=== PATIENT | male | born 1990 | race Caucasian/White ===

== ENCOUNTER 2016-11-03 05:51 | Day surgery (SDC) | payer OTHER ==
[2016-11-03] MEDS ORDERED: PREGABALIN 75 MG CAP PO ONE (06:00)
[2016-11-03] MEDS ORDERED: ACETAMINOPHEN 500 MG TAB PO ONE (06:00)
[2016-11-03] MEDS ORDERED: ceFAZolin 2 GM/DEXTROSE 100 ML IV ONE (06:00)
[2016-11-03] MEDS ORDERED: LIDOCAINE 1% 5 ML SDV ONE (06:44)
[2016-11-03] MEDS ORDERED: SCOPOLAMINE HYDROBROMIDE 1.5 MG PATCH TD ONE ×2 (07:26→07:30)
[2016-11-03] MEDS ORDERED: BUPIVACAINE/EPI 0.25% 30 ML SDV ONE (07:47)
[2016-11-03] MEDS ORDERED: EPINEPHrine 30 MG/30 ML MDV ONE (07:48)
[2016-11-03] MEDS ORDERED: PROPOFOL 200 MG/20 ML VIAL ONE (08:25)
[2016-11-03] MEDS ORDERED: fentaNYL 250 MCG/5 ML INJ ONE (08:25)
[2016-11-03] MEDS ORDERED: METOCLOPRAMIDE 10 MG/2 ML VIAL ONE (08:26)
[2016-11-03] MEDS ORDERED: ONDANSETRON 4 MG/2 ML VIAL ONE (08:26)
[2016-11-03] MEDS ORDERED: LIDOCAINE 2% JELLY 5 ML TUBE ONE (08:26)
[2016-11-03] MEDS ORDERED: MIDAZOLAM 2 MG/2 ML VIAL ONE (09:14)
[2016-11-03] MEDS ORDERED: KETOROLAC 30 MG/1 ML SDV ONE (15:16)
--- NOTE | 2016-11-03 17:30 | DX ---
Intraoperative Fluoroscopy of the Right Hip Clinical History: 26-year-old male undergoing right hip arthroscopy. Findings: Dr. James Chaudhary used 21.2 seconds of fluoroscopy time (exposure dose of 5.72 mGy), and 3 spot matrix intraoperative images were acquired between 10:15 a.m. and 12:23 p.m. on November 03, 2016 identifying needle localization and then orthopedic instrumentation over the right hip. Impression: Intraoperative fluoroscopy during an ongoing right hip arthroscopy.
== END 2016-11-03 19:30 | disposition home or self-care (01) ==
LOC: FSGY 05:51
PROVIDERS: ATTEND Orthopaedic Surgery Sports Medicine
PROC: 0SQ94ZZ Repair Right Hip Joint, Percutaneous Endoscopic Approach (ICD-10-PCS; principal; 2016-11-03 08:30)
DX: M25.851 Other specified joint disorders, right hip (principal)
CPT/HCPCS: 29914; 29916; 76001; C1769; C1713; J0690; J1885; J2250; J2405; J2704; J2765; J3010